=== PATIENT | female | born 1995 | race Caucasian/White ===

== ENCOUNTER → 2020-01-14 | Outpatient (CLI) | payer BC ==
[2020-01-16 20:09] LABS: CHLAMYDIA TRACHOMATIS, NAA Negative (Negative); NEISSERIA GONORRHOEAE, NAA Negative (Negative)
== END | disposition home or self-care (01) ==
LOC: LAB 15:30 → LAB SHORT 15:30
PROVIDERS: Obstetrics & Gynecology
DX: Z01.419 Encounter for gynecological examination (general) (routine) without abnormal findings (principal); Z11.3 Encounter for screening for infections with a predominantly sexual mode of transmission
CPT/HCPCS: 87491; 87591; G0123

== ENCOUNTER → 2020-09-09 | Outpatient (CLI) | payer OTHER ==
[2020-09-09 18:47] LABS: BASOPHILS ABSOLUTE AUTO 0.06 K/mm3 (0.00-0.23); BASOPHILS PERCENT AUTO 1 % (0-2); EOSINOPHILS PERCENT AUTO 1 % (0-6); Hematocrit 42.5 % (33.0-51.0); Hemoglobin 14.1 g/dL (11.5-16.0); IMMATURE GRAN ABSOLUTE AUTO 0.07 K/mm3 (0.00-0.10); IMMATURE GRAN PERCENT AUTO 1 % (0-1); LYMPHOCYTES ABSOLUTE AUTO 2.33 K/mm3 (0.84-5.20); LYMPHOCYTES PERCENT AUTO 21 % (21-46); MONOCYTES ABSOLUTE AUTO 0.59 K/mm3 (0.16-1.47); MONOCYTES PERCENT AUTO 5 % (4-13); Mean Corpuscular HGB Conc 33.2 g/dL (31.5-36.5); Mean Corpuscular Volume 85 fL (80-100); Mean Platelet Volume 10.3 fL (9.1-12.4); NEUTROPHILS ABSOLUTE AUTO 7.98 K/mm3 (1.96-9.15); NEUTROPHILS PERCENT AUTO 72 % (41-73); Platelet Count 207 K/mm3 (150-400); RDW Coefficient Variation 13.7 % (11.7-14.2); RDW Standard Deviation 41.9 fL (35.1-46.3); Red Blood Cell Count 5.03 M/mm3 (3.80-5.20); White Blood Cell Count 11.13 K/mm3 (4.00-11.30)
[2020-09-09 19:05] LABS: Albumin, Blood 4.2 g/dL (3.4-5.0); Bilirubin, Total 0.6 mg/dL (0.1-1.0); Bun/Creatinine Ratio 10.8 (12.0-20.0); Calcium, Blood 9.4 mg/dL (8.5-10.1); Creatinine, Blood 1.11 mg/dL (0.40-1.00); Free Thyroxine 1.29 ng/dL (0.70-1.60); Globulin, Blood 4.3 g/dL (2.2-4.0); Potassium, Blood 3.5 mmol/L (3.5-5.5); Thyroid Stimulating Hormone 1.384 uIU/mL (0.360-4.800); Total Protein, Blood 8.5 g/dL (6.4-8.2)
== END ==
LOC: LAB SHORT 18:42 → LAB EV 18:42
PROVIDERS: Chiropractor
DX: R00.2 Palpitations (principal)
CPT/HCPCS: 80053; 84439; 84443; 85025; 85379

== ENCOUNTER → 2023-04-02 | Outpatient (CLI) | payer OTHER | END | disposition home or self-care (01) | LOC: LAB SHORT 10:06 → LAB 10:06 | PROVIDERS: Obstetrics & Gynecology | DX: Z01.419 Encounter for gynecological examination (general) (routine) without abnormal findings (principal) | CPT/HCPCS: G0145 ==

== ENCOUNTER 2024-09-04 07:37 | Day surgery (SDC) | payer OTHER ==
[~2024-09-04] VITALS: Ht 154.9 cm; Wt 111.1 kg
[~2024-09-04 07:37] MED LIST: Lactated Ringer's 1,000 ML IV ONE
[2024-09-04] MEDS ORDERED: propofoL 20 ML IV ONE (07:39)
[2024-09-04] MEDS ORDERED: METFORMIN HCL500 M3 PO (08:01)
[2024-09-04] MEDS ORDERED: ESCI10 PO (08:02)
[2024-09-04] MEDS ORDERED: Lactated Ringer's 1,000 ML IV ONE (08:12)
[2024-09-04] MEDS ORDERED: FentaNYL Citrate 50 MCG/ML 2 ML Injection ONE (08:50)
[2024-09-04] MEDS ORDERED: Midazolam HCl 1MG / ML 2ML Vial ONE (08:50)
[2024-09-04] MEDS ORDERED: Ondansetron HCl 2 MG / ML 2ML Vial ONE (09:34)
[2024-09-04] MEDS ORDERED: Ketorolac Tromethamine 30mg Vial ONE (09:37)
[2024-09-04] MEDS ORDERED: Rocuronium Bromide 10 MG/ML 5ML Injection IV ONE (09:37)
[2024-09-04] MEDS ORDERED: Dexamethasone Sod Phos 10 MG/ML 1ML VIAL ONE (09:37)
[2024-09-04] MEDS ORDERED: Sugammadex Sodium 200 MG/2ML SDV (100 MG/ML) ONE (09:39)
--- NOTE | 2024-09-04 10:01 | NUR ---
09/04/24 1001 Adrianna Robles MYOSURE NORMAL SALINE FLUID DEFICIT OF 35ML, NOTIFIED
[2024-09-04] MEDS ORDERED: Bupivacaine 0.5% W/EPI 1:200000 SDV 30 ML Vial ONE (10:15)
[2024-09-04 10:31] VITALS: BP 114/81
--- NOTE | 2024-09-04 10:49 | NUR ---
09/04/24 1049 Juan Miguel Belloker, PT VS STABLE DESPITE BEING PALE. PT DIZZY EARLIER BUT DENIES NAUSEA. PT GRADUALLY GETTING HER COLORS BACK UP. EATING APPLE SAUCE AND CRACKERS WITHOUT PROBLEM. SPOUSE AND ANOTHER RN FRIEND AT BEDSIDE. DC EDUCATION DONE. WCTM UNTIL PT GETTING MORE COLORS BACK AND THEN CAN LEAVE OUT OF STEP DOWN AND GO HOME.
== END 2024-09-04 10:58 | disposition home or self-care (01) ==
LOC: ORSCSDS 07:37
PROVIDERS: Obstetrics & Gynecology
PROC: 0UDB8ZX Extraction of Endometrium, Via Natural or Artificial Opening Endoscopic, Diagnostic (ICD-10-PCS; principal; 2024-09-04 09:00)
DX: R93.89 Abnormal findings on diagnostic imaging of other specified body structures (principal); N93.9 Abnormal uterine and vaginal bleeding, unspecified; N92.6 Irregular menstruation, unspecified; E66.01 Morbid (severe) obesity due to excess calories; Z68.42 Body mass index [BMI] 45.0-49.9, adult; Z79.84 Long term (current) use of oral hypoglycemic drugs; N18.30 Chronic kidney disease, stage 3 unspecified; F41.8 Other specified anxiety disorders; Z79.899 Other long term (current) drug therapy
CPT/HCPCS: 88305; J1100; J1885; J2250; J2405; J2704; J3010; J7120

== ENCOUNTER → 2024-09-11 | Outpatient (CLI) | payer OTHER ==
[~2024-09-11] MED LIST changes: +ESCI10 PO; -Lactated Ringer's 1,000 ML IV ONE; +METFORMIN HCL500 M3 PO
[2024-09-11 18:35] LABS: Alanine Aminotransfer (ALT/SGP 117 U/L (12-78); Albumin, Blood 4.1 g/dL (3.4-5.0); Alk Phos 104 U/L (50-136); Anion Gap 13 mmol/L (3-11); Aspartate Aminotrans (AST/SGOT 51 U/L (12-37); Bilirubin, Total 0.6 mg/dL (0.1-1.0); Blood Urea Nitrogen 13 mg/dL (8-24); Bun/Creatinine Ratio 18.5 (12.0-20.0); CHOL/HDL RATIO 5.6; CO2, Blood 25 mmol/L (21-32); Calcium, Blood 9.4 mg/dL (8.5-10.1); Chloride, Blood 106 mmol/L (98-108); Cholesterol 254 mg/dL (50-200); Glomerular Filtration Rate 119 (60-); Glucose, Blood 98 mg/dL (70-99); HDL Cholesterol 45 mg/dL (>39); LDL/HDL RATIO 3.2; Low Density Lipoprotein Chol 145 mg/dL (0-110); Sodium, Blood 140 mmol/L (136-145); Total Protein, Blood 8.1 g/dL (6.4-8.2); Triglycerides 321 mg/dL (30-140); Very Low Density Lipoprot Chol 64 mg/dL (6-28)
[2024-09-12 17:58] LABS: HEPATITIS B SURFACE ANTIBODY 19.78 IU/L; HEPATITIS B SURFACE ANTIGEN Negative (Negative); HEPATITIS BE ANTIBODY Negative (Negative); HEPATITIS BE ANTIGEN Negative (Negative)
== END | disposition home or self-care (01) ==
LOC: LAB SHORT 15:24
PROVIDERS: Family Medicine
DX: R17 Unspecified jaundice (principal)
CPT/HCPCS: 80053; 80061

== ENCOUNTER 2024-12-11 09:00 | Day surgery (SDC) | payer OTHER ==
[~2024-12-11] VITALS: Ht 154.9 cm; Wt 113.1 kg
[~2024-12-11 09:00] MED LIST changes: +Lactated Ringer's 1,000 ML IV ONE
[2024-12-11] MEDS ORDERED: INOSITOL500 MG PO (09:39)
[2024-12-11] MEDS ORDERED: FentaNYL Citrate 50 MCG/ML 2 ML Injection ONE (09:57)
[2024-12-11] MEDS ORDERED: propofoL 20 ML IV ONE ×2 (09:57→11:17)
[2024-12-11] MEDS ORDERED: propofoL 0 ML IV ONE (11:08)
[2024-12-11] MEDS ORDERED: Doxycycline Hyclate 100 MG TAB PO ONE (12:30)
[2024-12-11] MEDS ORDERED: Rho(D) Immune Globulin 300 MCG / SYR IM ONE (12:30)
[2024-12-11] MEDS ORDERED: OxyCODONE 5 mg/Acetamin 325 mg TABLET PO PRN (12:35)
[2024-12-11] MEDS ORDERED: Ondansetron HCl 2 MG / ML 2ML Vial IV PRN (12:35)
[2024-12-11 12:36] VITALS: BP 131/84
--- NOTE | 2024-12-11 12:58 | NUR ---
12/11/24 1258 BHARTI PRETTY pad clean, pt assisting pt to get dressed.
== END 2024-12-11 13:16 | disposition home or self-care (01) ==
LOC: ORSCSDS 09:00
PROVIDERS: Obstetrics & Gynecology
PROC: 10D17ZZ Extraction of Products of Conception, Retained, Via Natural or Artificial Opening (ICD-10-PCS; principal; 2024-12-11 10:30)
DX: O02.0 Blighted ovum and nonhydatidiform mole (principal); E78.2 Mixed hyperlipidemia; K76.0 Fatty (change of) liver, not elsewhere classified; F41.8 Other specified anxiety disorders; Z79.84 Long term (current) use of oral hypoglycemic drugs; Z79.899 Other long term (current) drug therapy
CPT/HCPCS: 82947; 88305; A9270; J2704; J2791; J3010

== ENCOUNTER → 2025-01-16 | Outpatient (CLI) | payer OTHER ==
[~2025-01-16] MED LIST changes: +INOSITOL500 MG PO; -Lactated Ringer's 1,000 ML IV ONE
[2025-01-19 01:32] LABS: ESTRADIOL BY IMMUNOASSAY 61 pg/mL
== END | disposition home or self-care (01) ==
LOC: LAB SHORT 15:22 → LAB 15:22
PROVIDERS: Obstetrics & Gynecology
DX: Z31.41 Encounter for fertility testing (principal)
CPT/HCPCS: 82670; 84144